=== PATIENT | female | born 1970 | race Caucasian/White ===

== ENCOUNTER 2018-06-18 08:15 | Outpatient (CLI) | payer OTHER | END 2018-06-18 08:16 | disposition short-term general hospital (02) | LOC: EMS 08:15 | PROVIDERS: ATTEND Surgery | DX: M25.572 Pain in left ankle and joints of left foot (principal); W01.0XXA Fall on same level from slipping, tripping and stumbling without subsequent striking against object, initial encounter | CPT/HCPCS: A0425; A0429 ==

== ENCOUNTER 2022-05-22 01:45 | Outpatient (CLI) | payer OTHER | END 2022-05-22 01:46 | disposition critical access hospital (66) | LOC: EMS 01:45 | DX: S99.911A Unspecified injury of right ankle, initial encounter (principal); S99.922A Unspecified injury of left foot, initial encounter; W18.30XA Fall on same level, unspecified, initial encounter; Y92.009 Unspecified place in unspecified non-institutional (private) residence as the place of occurrence of the external cause | CPT/HCPCS: A0425; A0429 ==

== ENCOUNTER 2022-05-22 01:54 | Emergency (ER) | payer OTHER ==
--- NOTE | 2022-05-22 02:06 | ED Physician Documentation ---
PD HPI LOWER EXT INJURY - Stated complaint Stated Complaint: RT BIG TOE INJURY, ANKLE SWELLING, ETOH - Chief complaint Chief Complaint: Trauma Ext - History obtained from History obtained from: Patient - Additional information Additional information: BIBA. HPI from patient. Patient was taking a cover off of an in-ground hot tub when she lost her balance and fell into the tub, injuring BLE. 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 She c/o pain in left ankle, left foot, right great toe, and right knee. Denies head injury, denies LOC. Review of Systems Musculoskeletal: reports: Extremity pain, Joint pain. 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, Breast implants - Present Medications Home Medications: Ambulatory Orders Medication Instructions Recorded Confirmed Ondansetron Odt [Zofran Odt] 4 mg TL Q6H PRN #20 tablet 05/22/22 Oxycodone HCl/Acetaminophen 1 - 2 each PO Q6HR PRN #20 tab 05/22/22 [Oxycodone-Acetaminophen 5-325] buPROPion HCL [Bupropion Xl] 300 mg PO QPM 05/22/22 05/22/22 - Allergies Allergies/Adverse Reactions: Allergies Allergy/AdvReac Type Severity Reaction Status Date / Time hydrocodone AdvReac Respiratory Verified 05/22/22 02:06 PD ED PE NORMAL - Vitals Vital signs reviewed: Yes - General General: Alert and oriented X 3, Well developed/nourished, Other (obvious painful distress) - HEENT HEENT: Atraumatic PD ED PE EXPANDED - Extremities Extremities: Other (right knee direct patellar tenderness, fibular head tenderness. right great toe tenderness, echymosis, in extension at rest. left lateral malleolus and lateral foot TTP. NVI bilateral feet, toes including right great toe with brisk capillary refill and LTS intact) Results - Vitals Vitals: Oxygen O2 Source Room air - Rads (name of study) right knee xrays Relevant Findings:: Prelim report reviewed, EMP independent interpretation of test (Images reviewed by me and my intepretation is no acute injury including no fracture nor dislocation), See rad report left aknle xrays Relevant Findings:: Prelim report reviewed, EMP independent interpretation of test (Images reviewed by me and my intepretation is no acute injury including no fracture nor dislocation), See rad report left foot xrays Relevant Findings:: Prelim report reviewed, EMP independent interpretation of test (images reviewed by me and my interpretation is minimally displaced spiral fifth metatarsal fracture ), See rad report right great toe xrays Relevant Findings:: Prelim report reviewed, EMP independent interpretation of test (images reviewed by me and my interpretation is fracture of first proximal phalanx with dorsal displacement), See rad report Procedures - Splint (location) - Minor Lower extremity left Splint applied by: Tech Type of splint: Fiberglass, Short leg, Posterior Other: Patient tolerated well, No complications, Neurovascular intact, Good alignment, Other (crutches not provided (patient has BLE injuries)) PD Medical Decision Making - ED course Complexity details: reviewed results, re-evaluated patient, considered differential, d/w patient ED course: Fractures of right great toe and left fifth metatarsal as documented above. no evidence of neurovascular compromise. Given 1mg IM dilaudid and reports adequate analgesia. she had generalized pruritis after the injection and thus subsequently given 25mg IM benadryl which relieved this symptom. Results reviewed with patient. I discussed this case including xray results with Dr. Couch ([facility]), recommends splint LLE. Regarding the right toe injury, he recommends leaving the toe as it is, as reduction of a fracture in this location (great toe proximal phalanx) is typically difficult to achieve without surgical intervention. He also does not recommend splinting; can place bulky dressing for some degree of protection of the injury. He can evaluate patient in his office tomorrow. I advised patient of these recommendations and follow up information for Dr. Couch provided on d/c instructions. patient is provided take-home packs of percocet and zofran with prescriptions for these medications also provided. I am prescribing a short course of short-acting opioid pain medication for this patient. 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 I have discussed that the opioids are for short term therapy only, and will not be refilled from the ED. Departure - Departure Disposition: 01 Home, Self Care Clinical Impression: Metatarsal fracture Qualifiers: Encounter type: initial encounter Metatarsal bone: fifth Fracture type: closed Fracture alignment: nondisplaced Laterality: left Qualified Code(s): S92.355A - Nondisplaced fracture of fifth metatarsal bone, left foot, initial encounter for closed fracture Fractured great toe Qualifiers: Encounter type: initial encounter Fracture type: closed Phalanx: proximal Fracture alignment: displaced Laterality: right Qualified Code(s): S92.411A - Displaced fracture of proximal phalanx of right great toe, initial encounter for closed fracture Avulsion fracture of lateral malleolus of left fibula Qualifiers: Encounter type: initial encounter Fracture type: closed Qualified Code(s): S82.62XA - Displaced fracture of lateral malleolus of left fibula, initial encounter for closed fracture Condition: Good Instructions: Fx Ankle, ED Fx Foot Follow-Up: Efrain Couch MD [Provider Admit Priv/Credential] - Tomorrow Prescriptions: Oxycodone HCl/Acetaminophen [Oxycodone-Acetaminophen 5-325] 1 - 2 each PO Q6HR PRN #20 tab PRN Reason: Pain >8 Ondansetron Odt [Zofran Odt] 4 mg TL Q6H PRN #20 tablet PRN Reason: Nausea / Vomiting Comments: On the x-rays, you have the following injuries: 1) fracture of the left fifth metatarsal. This is a bone on the outer aspect of the foot, between the toe and the midfoot. 2) an avulsion fracture of the left fibula. This is the outer aspect of your left ankle, and the type of fracture is typically due to a ligament pulling off of where it inserts into the bone. 3) fracture of the right great toe with significant displacement. 4) no abnormality on the x-rays of the right knee. I discussed your injuries with the orthopedic surgeon. He can see you in the office tomorrow, and elsewhere on these discharge instructions are his name, office address, and office phone number. Call the office when they open tomorrow (Monday), and explain that you were in the emergency department over the weekend, that the emergency department physician spoke with Dr. De Leon, and that he indicated he will reevaluate you on Monday. In my conversation with Dr. De Leon, he recommended leaving the right toe as it is at this time, as reducing this injury would be very difficult and likely cause more pain than benefit. He suspects you will need surgery to fix this injury. Prescriptions for Percocet (opiate/narcotic pain medication) and ondansetron (antinausea medication) have been electronically submitted to [facility] in [place]. I am prescribing a short course of narcotic pain medication for you. These are potentially dangerous and addictive medications that should be used carefully. These medications may constipate you. Take an bmrp-ned-[id number] stool softener (docusate) twice daily with plenty of water while taking these medications. If you go 24 hours without a bowel movement, take [id number] miralax, per package instructions. Do not drink or drive while taking these medications. If you received narcotic or sedating medications while in the emergency department, do not drive for 24 hours. Store this medication in a safe, secure place and out of reach of children. It is a violation of federal law to give or sell this medication to another person or to use in a manner other than prescribed. The ED will not refill narcotic prescriptions, including prescriptions lost or stolen. To dispose of unwanted medications: 1. [facility] [address] in [place] has a medication drop box. They accept prescription medications (in pill form) Monday through Monday 9:00 a.m. to 5:00 p.m. 2. The [facility] [employer] accepts prescription medications (in pill form only) for disposal year round. Call for more information. 3. Contact the [facility] for the next [facility] sponsored prescription drug collection event. , [phone], or [phone]; Discharge Date/Time: 05/22/22 07:16
[2022-05-22] MEDS ORDERED: HYDROmorphone 1 MG/ML CARPUJECT IM STA (02:07)
[2022-05-22] MEDS ORDERED: diphenhydrAMINE INJ 50 MG/ML VIAL IM STA (02:35)
[2022-05-22] MEDS ORDERED: oxyCODONE/ACET 5/325 Prepack 4 PO STA (06:03)
[2022-05-22] MEDS ORDERED: ONDANSETRON ODT 4 MG Prepack 2 TL STA (06:04)
[2022-05-22 07:16] VITALS: BP 142/68
--- NOTE | 2022-05-22 09:08 | XRAY Report ---
PROCEDURE: Ankle 3 View LT INDICATIONS: fall, injury/pain/tenderness TECHNIQUE: 3 views of the ankle were acquired. COMPARISON: Correlation is made with the accompanying plain films. FINDINGS: Bones: No fractures or dislocations. Ankle mortise is normally aligned. No suspicious bony lesions . Soft tissues: Soft tissue swelling is seen laterally. IMPRESSION: Soft tissue swelling is seen. No findings of fracture are seen. However, if there is point tenderness (or other clinical concern fo r a fracture not seen on these plain films) then please consider a short-term follow-up plain film se veronica or CT for further evaluation. Note: No significant discrepancy from the preliminary report. Reviewed by: Daryn Cortes MD on 05/22/2022 8:07 AM EMILY Approved by: Daryn Cortes MD on 05/22/2022 8:07 AM EMILY Station ID: [email or web address]
--- NOTE | 2022-05-22 09:09 | XRAY Report ---
PROCEDURE: Toe(s) RT INDICATIONS: fall, pain, tenderness great toe TECHNIQUE: 3 views of the right toe(s) acquired. COMPARISON: Correlation is made with the accompanying plain films. FINDINGS: Bones: There is a comminuted, intra-articular fracture involving the distal aspect of the proximal ph alanx of the great toe. No additional fractures can be seen. Soft tissues: No suspicious soft tissue densities. IMPRESSION: Comminuted, intra-articular fracture seen involving the great toe at the distal aspect of the proxima l phalanx. Note: No significant discrepancy from the preliminary report. Reviewed by: Daryn Cortes MD on 05/22/2022 8:08 AM EMILY Approved by: Daryn Cortes MD on 05/22/2022 8:08 AM EMILY Station ID: [email or web address]
--- NOTE | 2022-05-22 09:10 | XRAY Report ---
PROCEDURE: Knee 4 View RT INDICATIONS: fall, pain, tenderness TECHNIQUE: 4 views of the right knee(s) were acquired. COMPARISON: None. FINDINGS: Bones: No fractures or dislocations. No suspicious bony lesions. Soft tissues: No effusion. No suspicious soft tissue calcifications or masses. IMPRESSION: Normal knee plain films. If it would be helpful for clinical management decision making, please consider a dedicated, schedule d knee MRI for further evaluation (assuming that there is no contraindication). Note: No significant discrepancy from the preliminary report. Reviewed by: Daryn Cortes MD on 05/22/2022 8:09 AM EMILY Approved by: Daryn Cortes MD on 05/22/2022 8:09 AM EMILY Station ID: [email or web address]
--- NOTE | 2022-05-22 09:12 | XRAY Report ---
PROCEDURE: Foot 3 View LT INDICATIONS: fall, injury/pain/tenderness distal lateral foot TECHNIQUE: 3 views of the foot were acquired. COMPARISON: Correlation is made with the accompanying plain films. FINDINGS: Bones: There is a mildly displaced oblique fracture of the fifth metatarsal shaft. No intra-articula r involvement is seen. There is a tiny avulsion fracture seen involving the tip of the distal fibula. Soft tissues: No suspicious soft tissue calcifications or masses. IMPRESSION: Fifth metatarsal shaft fracture. Tiny avulsion fracture seen involving the distal tip of the fibula. Note: No significant discrepancy from the preliminary report. Reviewed by: Daryn Cortes MD on 05/22/2022 8:11 AM EMILY Approved by: Daryn Cortes MD on 05/22/2022 8:11 AM EMILY Station ID: [email or web address]
== END 2022-05-22 07:16 | disposition home or self-care (01) ==
LOC: EDUNIT# → ED 01:54
DX: S92.355A Nondisplaced fracture of fifth metatarsal bone, left foot, initial encounter for closed fracture (principal); S92.411A Displaced fracture of proximal phalanx of right great toe, initial encounter for closed fracture; S82.62XA Displaced fracture of lateral malleolus of left fibula, initial encounter for closed fracture; W01.0XXA Fall on same level from slipping, tripping and stumbling without subsequent striking against object, initial encounter
CPT/HCPCS: 29515; 73564; 73610; 73630; 73660; 96372; 99284; J1170; J1200